=== PATIENT | female | born 2000 | race Caucasian/White ===

== ENCOUNTER 2019-02-07 15:23 | Observation (INO) | payer MEDICAID ==
[~2019-02-07] VITALS: Ht 149.9 cm; Wt 66.2 kg
== END 2019-02-07 18:50 | disposition home or self-care (01) ==
LOC: 8 EST LDRP 15:23
PROVIDERS: ADMIT Obstetrics & Gynecology; ATTEND Obstetrics & Gynecology
DX: O36.8130 Decreased fetal movements, third trimester, not applicable or unspecified (principal); Z3A.39 39 weeks gestation of pregnancy
CPT/HCPCS: 76805; 76818; G0378; 99281

== ENCOUNTER 2019-02-09 17:11 | Inpatient (IN) | payer MEDICAID ==
[~2019-02-09] VITALS: Ht 147.3 cm; Wt 67.1 kg
[2019-02-09] MEDS ORDERED: DEXT 5%/LACTATED RINGERS 1,000 ML IV SCH (17:49)
[2019-02-09] MEDS ORDERED: DEXT 5%/LR + PITOCIN 20UNITS/L 1,000 ML IV SCH (17:49)
[2019-02-09] MEDS ORDERED: CARBOPROST TROMETHAMINE 250 MCG/ML AMPUL IM PRN (18:00)
[2019-02-09] MEDS ORDERED: LIDOCAINE HCL 1% 20ML VIAL (Pyxis) INJ INFIL SCH (18:00)
[2019-02-09] MEDS ORDERED: NALOXONE HCL 0.4 MG/ML 1ML VIAL IM PRN (18:00)
[2019-02-09] MEDS ORDERED: DINOPROSTONE 10MG VAGINAL INSERT VG NR (18:00)
[2019-02-09] MEDS ORDERED: METHYLERGONOVINE MALEATE 0.2 MG/ML IM PRN (18:00)
[2019-02-09] MEDS: LACTATED RINGERS 1,000 ML IV SCH ×2 (18:43→21:04)
[2019-02-09 18:55] LABS: BASOPHILS % 0.2 % (0.0-2.0); EOSINOPHILS % 0.5 % (0.0-5.0); HEMATOCRIT. 36.4 % (36.0-48.0); HEMOGLOBIN. 12.2 g/dL (12.0-16.0); LYMPHOCYTES % 15.4 % (20.0-50.0); MEAN CORPUSCULAR HEMOGLOBIN 29.2 pg (28.0-32.0); MEAN PLATELET VOLUME 9.3 fl (7.4-10.4); MONOCYTES % 6.4 % (2.0-8.0); NEUTROPHILS % 77.5 % (40.0-76.0); PLATELET 238 x1000/uL (130-400); RED BLOOD CELL COUNT 4.19 mill/uL (4.2-5.4); RED CELL DISTRIBUTION WIDTH 15.4 % (11.6-14.6)
[2019-02-09 18:59] LABS: CLARITY URINE TURBID (CLEAR); COLOR URINE YELLOW (YELLOW); KETONES URINE NEGATIVE (NEGATIVE); LEUKOCYTE ESTERASE URINE 1+ (NEGATIVE); NITRITE URINE NEGATIVE (NEGATIVE); OCCULT BLOOD URINE NEGATIVE (NEGATIVE); PH URINE 8.5 (4.5-8.0); PROTEIN URINE NEGATIVE (NEGATIVE); SPECIFIC GRAVITY URINE 1.021 (1.005-1.030); UROBILINOGEN URINE 0.2 E.U./dL (0.2-1.0)
[2019-02-09 19:02] LABS: INR 0.9; PARTIAL THROMBOPLASTIN TIME 25.6 sec (23.4-31.0); PROTHROMBIN TIME 9.2 sec (9.6-11.0)
[2019-02-09 19:10] LABS: *AMPHETAMINES SCREEN URINE NEGATIVE (NEGATIVE); *BARBITURATES SCREEN URINE NEGATIVE (NEGATIVE); *BENZODIAZEPINES SCREEN URINE NEGATIVE (NEGATIVE); *COCAINE SCREEN URINE NEGATIVE (NEGATIVE)
[2019-02-09 19:11] LABS: CANNABINOID URINE SCREEN NEGATIVE (NEGATIVE); METHADONE URINE SCREEN NEGATIVE (NEGATIVE); OPIATES URINE SCREEN NEGATIVE (NEGATIVE); PHENCYCLIDINE URINE SCREEN NEGATIVE (NEGATIVE)
[2019-02-09 19:31] LABS: HEPATITIS B SURFACE ANTIGEN NEGATIVE
[2019-02-09] MEDS: BUTORPHANOL TARTRATE 2 MG/ML VIAL IV PRN (21:03)
[2019-02-10] MEDS: BUTORPHANOL TARTRATE 2 MG/ML VIAL IV PRN (01:41)
[2019-02-10] MEDS: LACTATED RINGERS 1,000 ML IV SCH ×3 (05:32→15:43)
[2019-02-10] MEDS ORDERED: DEXT 5%/LR + PITOCIN 20UNITS/L 1,000 ML IV SCH (10:00)
[2019-02-10] MEDS ORDERED: ROPIVACAINE HCL/PF EPIDURAL 200 ML EPI SCH (13:00)
[2019-02-10] MEDS ORDERED: ROPIVACAINE HCL/PF EPIDURAL 200 ML EPI ONE (13:02)
[2019-02-10] MEDS ORDERED: LIDOCAINE HCL 2%/EPINEPHRINE 1:100,000 20 ML VIAL INFIL ONE (16:41)
[2019-02-10] MEDS ORDERED: ACETAMINOPHEN 500MG TABLET PO SCH (19:15)
[2019-02-11] MEDS: LACTATED RINGERS 1,000 ML IV SCH ×2 (01:04→06:02)
[2019-02-11] MEDS ORDERED: AMPICILLIN 2,000 MG in SODIUM CHLORIDE 0.9% 100 ML IV NR (06:00)
[2019-02-11] MEDS ORDERED: GENTAMICIN 100MG PREMIX 50 ML IV NR (08:00)
[2019-02-11 09:46] LABS: CHLORIDE 109 mEq/L (98-107)
[2019-02-11] MEDS ORDERED: AMPICILLIN 1,000 MG in SODIUM CHLORIDE 0.9% 50 ML IV SCH (12:00)
[2019-02-11] MEDS ORDERED: LORATADINE 10MG TABLET PO SCH (14:45)
[2019-02-11] MEDS ORDERED: LIDOCAINE HCL 2%/EPINEPHRINE 1:100,000 20 ML VIAL INFIL ONE (16:40)
[2019-02-11] MEDS ORDERED: MINERAL OIL 30ML BOTTLE PO NR (17:00)
[2019-02-11] MEDS ORDERED: DEXT 5%/LR + PITOCIN 20UNITS/L 1,000 ML IV SCH (17:20)
[2019-02-11] MEDS ORDERED: MISOPROSTOL 200MCG TABLET VG ONE (17:30)
[2019-02-11] MEDS ORDERED: GLYCERIN/WITCH HAZEL LEAF MEDICATED PAD TOP PRN (17:30)
[2019-02-11] MEDS ORDERED: BISACODYL 10MG SUPP PR PRN (17:30)
[2019-02-11] MEDS ORDERED: DIPHENHYDRAMINE 25MG CAPSULE PO PRN (17:30)
[2019-02-11] MEDS ORDERED: IBUPROFEN 400MG TABLET PO PRN (17:30)
[2019-02-11] MEDS ORDERED: ACETAMINOPHEN WITH CODEINE 300/30MG TABLET PO PRN (17:30)
[2019-02-11] MEDS ORDERED: HEMORRHOIDAL SUPP PR PRN (17:30)
[2019-02-11] MEDS ORDERED: BENZOCAINE/LANOLIN/ALOE VERA SPRAY TOP PRN (17:30)
[2019-02-11] MEDS ORDERED: MISOPROSTOL 200MCG TABLET RC ONE (17:45)
[2019-02-11] MEDS ORDERED: MISOPROSTOL 200MCG TABLET RC NR (17:45)
[2019-02-11] MEDS: ACETAMINOPHEN WITH CODEINE 300/30MG TABLET PO PRN ×2 (17:49→20:01)
[2019-02-11] MEDS ORDERED: GENTAMICIN 100MG PREMIX 50 ML IV SCH (20:00)
[2019-02-11 20:30] VITALS: BP 98/63
[2019-02-11] MEDS: MAGNESIUM/ALUMINUM HYDROXIDE/SIMETHICONE 30ML UDC PO SCH (21:47)
[2019-02-11] MEDS: DOCUSATE SODIUM 100MG CAPSULE PO SCH (21:48)
[2019-02-11] MEDS: SIMETHICONE 80MG TABLET CHEW PO SCH (21:49)
[2019-02-11 22:30] VITALS: BP 99/65
[2019-02-12 05:15] VITALS: BP 101/63
[2019-02-12 07:48] VITALS: BP 101/57
[2019-02-12] MEDS: MAGNESIUM/ALUMINUM HYDROXIDE/SIMETHICONE 30ML UDC PO SCH ×4 (08:34→21:05)
[2019-02-12] MEDS: FERROUS SULFATE 325MG TABLET PO SCH ×3 (08:34→17:51)
[2019-02-12] MEDS: PRENATAL VIT/FE FUMARATE/FA TABLET PO SCH (08:34)
[2019-02-12] MEDS: SIMETHICONE 80MG TABLET CHEW PO SCH ×4 (08:34→21:05)
[2019-02-12 09:40] LABS: HEMATOCRIT. 24.7 % (36.0-48.0); HEMOGLOBIN. 8.2 g/dL (12.0-16.0); MEAN CORPUSCULAR HEMOGLOBIN 29.1 pg (28.0-32.0); MEAN CORPUSCULAR VOLUME 87.9 fL (81.0-99.0); PLATELET 185 x1000/uL (130-400); RED BLOOD CELL COUNT 2.81 mill/uL (4.2-5.4); RED CELL DISTRIBUTION WIDTH 15.6 % (11.6-14.6)
[2019-02-12] MEDS: ACETAMINOPHEN WITH CODEINE 300/30MG TABLET PO PRN (16:15)
[2019-02-12 16:16] VITALS: BP 90/57
[2019-02-12 16:31] LABS: PLATELET ESTIMATE NORMAL
[2019-02-12 19:30] VITALS: BP 97/53
[2019-02-12] MEDS: DOCUSATE SODIUM 100MG CAPSULE PO SCH (21:05)
[2019-02-13 04:00] VITALS: BP 91/55
[2019-02-13 07:49] VITALS: BP 90/53
[2019-02-13] MEDS: FERROUS SULFATE 325MG TABLET PO SCH (08:18)
[2019-02-13] MEDS: SIMETHICONE 80MG TABLET CHEW PO SCH (08:18)
[2019-02-13] MEDS: MAGNESIUM/ALUMINUM HYDROXIDE/SIMETHICONE 30ML UDC PO SCH (08:18)
[2019-02-13] MEDS: PRENATAL VIT/FE FUMARATE/FA TABLET PO SCH (08:19)
[2019-02-13] MEDS ORDERED: MEDROXYPROGESTERONE ACETATE 150MG/ML VIAL IM NR (10:00)
== END 2019-02-13 11:25 | disposition home or self-care (01) | DRG 560 ==
LOC: OBSVTOIN 17:11 → 8 EST LDRP 17:11 → 8EST 02-11 20:40
PROVIDERS: ADMIT Obstetrics & Gynecology; ATTEND Obstetrics & Gynecology
PROC: 10E0XZZ Delivery of Products of Conception, External Approach (ICD-10-PCS; principal; 2019-02-11)
PROC: 3E0R3BZ Introduction of Anesthetic Agent into Spinal Canal, Percutaneous Approach (ICD-10-PCS; 2019-02-11)
PROC: 00HU33Z Insertion of Infusion Device into Spinal Canal, Percutaneous Approach (ICD-10-PCS; 2019-02-11)
DX: O48.0 Post-term pregnancy (principal); D64.9 Anemia, unspecified; O77.0 Labor and delivery complicated by meconium in amniotic fluid; Z37.0 Single live birth; Z3A.40 40 weeks gestation of pregnancy; O99.03 Anemia complicating the puerperium
CPT/HCPCS: 36415; 80048; 80305; 81003; 86592; 86703; 86762; 86850; 86900; 87340; G0378; J0290; J0595; J1050; J1580; J2590; J2795; J3490; J7050; J7120; A4315

== ENCOUNTER 2019-02-21 17:16 | Emergency (ER) | payer MEDICAID ==
[2019-02-21 18:48] LABS: CLARITY URINE CLEAR (CLEAR); COLOR URINE YELLOW (YELLOW); KETONES URINE NEGATIVE (NEGATIVE); LEUKOCYTE ESTERASE URINE 2+ (NEGATIVE); NITRITE URINE NEGATIVE (NEGATIVE); OCCULT BLOOD URINE 2+ (NEGATIVE); PROTEIN URINE NEGATIVE (NEGATIVE); SPECIFIC GRAVITY URINE 1.022 (1.005-1.030); UROBILINOGEN URINE 0.2 E.U./dL (0.2-1.0)
[2019-02-21 19:21] VITALS: BP 115/84
== END 2019-02-21 19:22 | disposition home or self-care (01) ==
LOC: ER 17:16
DX: O86.20 Urinary tract infection following delivery, unspecified (principal)
CPT/HCPCS: 81003; 81025; 99283